=== PATIENT | male | born 1955 | race Caucasian/White ===

== ENCOUNTER 2018-04-16 06:45 | Day surgery (SDC) | payer BC, OTHER ==
[2018-04-16] MEDS ORDERED: Sodium Chloride 0.9% 10 ML Syringe FLUSH PRN (07:15)
[2018-04-16] MEDS ORDERED: Lactated Ringers 1,000 ML IV SCH (07:15)
[2018-04-16] MEDS ORDERED: Propofol 200 MG/20 ML SDV IV ONE (08:00)
[2018-04-16] MEDS ORDERED: Simethicone Drops 40 MG/0.6 ML 30 ML Bottle ONE (08:24)
--- NOTE | 2018-04-16 08:40 | PCM.OPNOTE ---
- General Post-Op/Procedure Note Date of Surgery/Procedure: 04/16/18 Operative Procedure(s): Colonoscopy Findings: Diverticulosis Pre Op Diagnosis: Hx Colon Polyps Post-Op Diagnosis: Same Anesthesia Technique: MAC Primary Surgeon: Ty Martinez Complications: None Condition: Good
--- NOTE | 2018-04-16 08:42 | PCM.HPR ---
H & P Addendum review - H & P Addendum Review Date of Original H & P: 04/04/18 Date Reviewed: 04/16/18 Time Reviewed: 08:00 Patient was Examined: No Changes
[2018-04-16 09:14] VITALS: BP 98/47
--- NOTE | 2018-04-16 11:48 | OR ---
DATE OF OPERATION: 04/16/2018 SURGEON: Ty Martinez MD PREOPERATIVE DIAGNOSES: 1. History of colon polyps. 2. Diverticulosis. POSTOPERATIVE DIAGNOSIS: Diverticulosis. PROCEDURE PERFORMED: Colonoscopy. ANESTHESIA: IV sedation. PROCEDURE IN DETAIL: The patient was brought to the procedure room, where he was placed on his left side and IV sedation administered. Digital rectal exam was performed, which was normal. Colonoscope was inserted and advanced to the level of the cecum with some difficulty getting through the ascending colon. By stiffening the scope, I was able to advance into the cecum, which was confirmed by identifying the appendiceal lumen and ileocecal valve. Prep was good and surfaces were well visualized. Upon withdrawing the scope, the ascending, transverse, and descending colon had a few scattered diverticula throughout. Sigmoid colon had several diverticula present. Rectum was normal and retroflexion was normal. Air was removed and the scope withdrawn. The patient tolerated the procedure well and returned to recovery in stable condition. Recommend routine colon screening in 5 years. /[id number] JODY/ARNAV
== END 2018-04-16 09:37 | disposition home or self-care (01) ==
LOC: FB.SDS 06:45
PROVIDERS: ATTEND Surgery
DX: Z12.11 Encounter for screening for malignant neoplasm of colon (principal); K57.30 Diverticulosis of large intestine without perforation or abscess without bleeding; I12.9 Hypertensive chronic kidney disease with stage 1 through stage 4 chronic kidney disease, or unspecified chronic kidney disease; E11.22 Type 2 diabetes mellitus with diabetic chronic kidney disease; N18.9 Chronic kidney disease, unspecified; E66.01 Morbid (severe) obesity due to excess calories; Z68.39 Body mass index [BMI] 39.0-39.9, adult; I48.0 Paroxysmal atrial fibrillation; I25.10 Atherosclerotic heart disease of native coronary artery without angina pectoris; Z95.1 Presence of aortocoronary bypass graft; G47.33 Obstructive sleep apnea (adult) (pediatric); Z87.891 Personal history of nicotine dependence; Z86.010 Personal history of colon polyps; Z79.84 Long term (current) use of oral hypoglycemic drugs; Z79.01 Long term (current) use of anticoagulants; Z79.899 Other long term (current) drug therapy; Z88.5 Allergy status to narcotic agent
CPT/HCPCS: 45378; 82962; A9270; J2704; J7120